=== PATIENT | female | born 1960 | race Caucasian/White ===

== ENCOUNTER 2021-08-17 12:18 | Emergency (ER) | payer OTHER ==
[2021-08-17] MEDS ORDERED: EPINEPHrine 1 MG/ML AMP ONE (12:41)
[2021-08-17] MEDS ORDERED: predniSONE 20 MG TAB ONE (12:41)
[2021-08-17] MEDS ORDERED: Famotidine/PF 20 mg/2ml Vial ONE (12:41)
== END 2021-08-17 15:37 | disposition home or self-care (01) ==
LOC: CSHERS 12:18
DX: L50.0 Allergic urticaria (principal); F17.210 Nicotine dependence, cigarettes, uncomplicated
CPT/HCPCS: 93005; 93010; 96372; 96374; J0171; J7512; S0028